=== PATIENT | female | born 1975 | race Caucasian/White ===

== ENCOUNTER 2022-01-02 04:41 | Emergency (ER) | payer OTHER ==
[~2022-01-02] VITALS: Ht 165.1 cm; Wt 68.0 kg
[2022-01-02] MEDS ORDERED: HYDROCODON-ACE1 EA10 PO (06:50)
[2022-01-02] MEDS ORDERED: NEURONTIN100 MG PO (06:50)
== END 2022-01-02 07:29 | disposition home or self-care (01) ==
LOC: ED 04:41
DX: R20.2 Paresthesia of skin (principal)
CPT/HCPCS: 36415; 80053; 82607; 82746; 83735; 85025; 96374; 96375; 99284-25; A9270; J1885; J2270; J2405